=== PATIENT | male | born 1930 | race Caucasian/White ===

== ENCOUNTER → 2016-11-02 | Outpatient (CLI) | payer OTHER, BC ==
[~2016-11-02] MED LIST: HYDROCHLOROTH12.5 M1 PO; HYDROCODONE-AP1 EAC6 PO; OTHER MISCELL; SENNA-S TABLET1 EACH PO
== END ==
LOC: MRI 13:56
DX: K57.90 Diverticulosis of intestine, part unspecified, without perforation or abscess without bleeding (principal); R26.9 Unspecified abnormalities of gait and mobility; R42 Dizziness and giddiness

== ENCOUNTER → 2017-11-09 | Outpatient (CLI) | payer OTHER, BC ==
[~2017-11-09] MED LIST changes: +ASPIRIN325 PO; +PROSCAR 5MG TABL5 MG PO; +VITAMIN D32000 UNI1 PO; +XALATAN2.5 ML OPHTHALMIC
== END ==
LOC: RAD 09:24
DX: Z01.818 Encounter for other preprocedural examination (principal); K44.9 Diaphragmatic hernia without obstruction or gangrene; K40.90 Unilateral inguinal hernia, without obstruction or gangrene, not specified as recurrent

== ENCOUNTER 2017-12-07 05:24 | Inpatient (IN) | payer OTHER, BC ==
[~2017-12-07] VITALS: Ht 182.9 cm; Wt 86.2 kg
--- NOTE | ~2017-12-07 | S ---
[facility] [place] [address] SURGICAL PATH RPT PROCEDURE Name: TIBURCIO TUCKER Room #: 401-I [facility] IN M.R.#: [id number] Admission: 12/07/17 Date of : 30 Discharge: 12/07/17 Report #: [id number] Path Case #: [id number] PATHOLOGY REPORT COLLECTION DATE: 12/07/2017 RECEIVED DATE: 12/07/2017 SUBMITTING PHYS: Dr. Abdirahman Llamas OTHER PHYS: Dr. Andrés Logan SPECIMEN(S) RECEIVED: A.Right hernia sac * * * * * * * * * * * * FINAL DIAGNOSIS: Right hernia sac, repair: - Congested fibrovascular connective tissue lined by mesothelium with mild chronic inflammation and reactive changes, consistent with a hernia sac. (IUV:mgr; 12/10/2017) PATHOLOGIST: Marilyn Marroquin M.D. REPORT ELECTRONICALLY SIGNED BY: Marilyn Marroquin M.D. DATE/TIME: 12/10/2017 13:26 * * * * * * * * * * * * GROSS PATHOLOGY: Received in formalin labeled "Tiburcio Tucker, right hernia sac," is a piece of fibromembranous tissue measuring 6.7 x 3.9 x 0.8 cm. No nodules or lesions are identified. Quality Engineer tissue is submitted in cassette A1. (CAA; 12/07/2017) CLINICAL HISTORY: Right recurrent inguinal hernia INITIAL CPT CODE(S): A; 61850 Professional services performed by [facility] at [facility] [address] [place] [address] Technical services performed by [facility] at [address] [place] [address]. [facility] [address] [place] [address] SURGICAL PATH RPT PROCEDURE Name: TIBURCIO TUCKER Room #: 401-I [facility] IN M.R.#: [id number] Admission: 12/07/17 Date of : 30 Discharge: 12/07/17 Report #: [id number] Path Case #: [id number] [address] PHONE: [phone] DIRECTOR: Deon Lopez M.D. * * * END OF REPORT * * *
--- NOTE | ~2017-12-07 | O ---
[facility] [place] [address] OPERATIVE REPORT Name: GARRETTJENI Room #: 401-I [facility] IN [facility].#: [id number] Admission: 12/07/17 Attend Phys: Abdirahman Llamas MD, F Discharge: 12/07/17 Date of : 30 Report #: [id number] THIS REPORT FOR: //name// CC: Andrés Llamas DATE OF SERVICE: 12/07/2017 SURGEON: Abdirahman Llamas MD MEAT HANGER: Desi Connors NP PREOPERATIVE DIAGNOSES: 1. Recurrent right inguinal hernia. 2. History of stroke. 3. Osteoarthritis. 4. Hypertension. 5. Gastroesophageal reflux disease. POSTOPERATIVE DIAGNOSES: 1. Incarcerated indirect right inguinal hernia. 2. History of stroke. 3. Osteoarthritis. 4. Hypertension. 5. Gastroesophageal reflux disease. PROCEDURE: Open repair of recurrent right inguinal hernia with Surgimesh plug and onlay patch. ANESTHESIA: General endotracheal anesthesia and local anesthetic. ESTIMATED BLOOD LOSS: 10 mL. SPECIMEN: None. COMPLICATIONS: None appreciated. INDICATIONS FOR PROCEDURE: This is an 87-year-old male patient of Dr. Andrés Logan, who has undergone previous laparoscopic repair of bilateral inguinal hernias on 10/27/2015. Since that time, the patient developed bulging and pain in the right groin approximately 6 months ago. He denies a change in his bowel habits. On exam, he was found to have a significant right groin bulge. He presents now for open repair of his recurrent right inguinal hernia. DESCRIPTION OF PROCEDURE IN DETAIL: After the risks, benefits, and expectations of the operation were discussed in detail with the patient, which include, but [facility] [place] [address] OPERATIVE REPORT Name: TUCKERJENI Room #: 401-I [facility] IN [facility].#: [id number] Admission: 12/07/17 Attend Phys: Abdirahman Llamas MD, F Discharge: 12/07/17 Date of : 30 Report #: [id number] are not limited to risks of bleeding, infection, recurrence, postoperative pain, and postoperative expectations, informed consent was obtained. The patient was identified in preoperative holding area. He was given IV antibiotics as documented in the chart in line with SCIP metrics. The patient was then taken to the operating room and he was placed in the supine position. SCDs were placed on the patient's bilateral lower extremities and pneumatic compression was initiated. The patient was given IV sedation and he was intubated without incident. His abdomen, groins, and genitalia were then prepped and draped in the standard sterile fashion. Time-out was performed to identify the correct patient and procedure. The planned transverse right inguinal incision was drawn out and anesthetized with local anesthetic. A sharp #10 blade scalpel was then used to make the incision through the skin and subcutaneous tissue. Electrocautery was used to dissect through the subcutaneous tissue down to the herniated tissue. The tissue was circumferentially dissected free. The external oblique fascia was then identified. It was opened along the length of its fibers toward the external inguinal ring and slightly laterally. The spermatic cord was then encircled with a [place] drain. Dissection was carried out to identify the indirect inguinal hernia sac with care taken to avoid the critical structures of the spermatic cord. After fully dissecting the sac free, high ligation was performed. An Allis was placed at the apex of the hernia sac and the sac was twisted to expel any content from the internal portion of the sac. Hemostat was then placed on the hernia sac and the sac was excised. A 2-0 Vicryl suture was then placed to close the cut edge of the hernia sac. A Surgimesh plug was then placed within the indirect inguinal defect and secured into place with 4 simple interrupted 0 Prolene sutures, medially at the pubic tubercle, inferiorly to the shelving edge of the inguinal ligament, and laterally and superiorly to the transversus abdominis muscle with transversalis fascia. The Surgimesh patch was then tailored to fit the inguinal canal. It was secured to the pubic tubercle and using two separate running 0 Prolene sutures, the edge of the mesh was affixed to the shelving edge of the inguinal ligament on the inferior side and the transversalis fascia with transversus abdominis muscle on the superior/lateral aspects. The tails of the mesh were then approximated to each other with a simple interrupted 0 Prolene suture. The external oblique fascia was then closed with a running 2-0 Vicryl suture. Local anesthetic was infiltrated subfascially. Abner's fascia was closed with a running 3-0 Vicryl suture and a running 4-0 Monocryl subcuticular suture was used to close the skin. Dermabond was applied to the suture line. The patient tolerated the procedure well. He was awakened, extubated, and taken to recovery room in stable condition with no apparent intraoperative complications. <ELECTRONICALLY SIGNED> By: Abdirahman Llamas MD, FACS 12/07/17 1730 [id number] Abdirahman Llamas MD, FACS /nt
--- NOTE | ~2017-12-07 | EKG ---
[place] [address] [facility] [place] [address] ELECTROCARDIOGRAM REPORT Name: TUCKERJENI Room #: 150-10 ADM IN ..#: [id number] Admission: 12/07/17 Attend Phys: Abdirahman Llamas MD, F Discharge: Date of : 30 Report #: [id number] THIS REPORT FOR: //name// [facility] Test Date: 2017-12-07 Test Time: 06:28:58 Pat Name: JENI TUCKER Department: Room: 150 10 Gender: M Under Cutter: MARTHA : 1930 Requested By: Richi Terrell Order Number: [id number] MD: Rohith Nunes Measurements Intervals [place] Rate: 69 P: -13 VA: 203 QRS: -1 QRSD: 113 T: 75 QT: 426 QTc: 457 Interpretive Statements Sinus rhythm Incomplete left bundle branch block Low voltage, extremity leads Anterior Q waves, possibly due to ILBBB Baseline wander in lead(s) V1 Compared to ECG 10/06/2016 15:45:28 Left bundle-branch block now present Electronically Signed On 12-07-2017 7:55:12 TRAILER STEERER by Rohith Nunes [email or web address] <ELECTRONICALLY SIGNED> By: Rohith Nunes MD, [facility] 12/07/17 0755 [id number] 0628 Rohith Nunes MD, [facility] /EPI
[2017-12-07 07:00] VITALS: BP 163/97
[2017-12-07] MEDS ORDERED: SENNA-S TABLET1 EACH PO (10:18)
[2017-12-07] MEDS ORDERED: HYDROCODONE-AP1 EAC6 PO (10:18)
[2017-12-07 10:38] VITALS: BP 148/86
[2017-12-07 13:25] VITALS: BP 148/86
== END 2017-12-07 14:53 | disposition home or self-care (01) | DRG 352 ==
LOC: TBA 05:24 → 4N 10:36 → PRE 14:26 → ENTRNSPT 14:44 → EDTRNSPTSTS 14:47 → 4N 14:53
PROC: 0YU50JZ Supplement Right Inguinal Region with Synthetic Substitute, Open Approach (ICD-10-PCS; principal; 2017-12-07)
DX: K40.91 Unilateral inguinal hernia, without obstruction or gangrene, recurrent (principal); M19.90 Unspecified osteoarthritis, unspecified site; I10 Essential (primary) hypertension; K21.9 Gastro-esophageal reflux disease without esophagitis; Z86.73 Personal history of transient ischemic attack (TIA), and cerebral infarction without residual deficits
CPT/HCPCS: 10790; 50010; 50101; 50386; 50417; 50788; 54118; 56524; 56525; 56526; 62110; 62900; 70005

== ENCOUNTER 2020-04-13 10:32 | Inpatient (IN) | payer OTHER ==
[~2020-04-13] VITALS: Ht 182.9 cm; Wt 86.2 kg
--- NOTE | ~2020-04-13 | O ---
[facility] [place] [address] OPERATIVE REPORT Name: JENI TUCKER Room #: 455-P [facility] IN ..#: [id number] Admission: 04/13/20 Attend Phys: Valerie Hill Discharge: Date of : 30 Report #: [id number] THIS REPORT FOR: cc: Andrés Logan MD, Rene P. MD Kneidel, Matthew T. MD ~ CC: Valerie Logan DATE OF SERVICE: 04/14/2020 PREOPERATIVE DIAGNOSIS: Left femoral neck fracture, displaced. POSTOPERATIVE DIAGNOSIS: Left femoral neck fracture, displaced. PROCEDURE: Left hip hemiarthroplasty. SURGEON: Dr. Kenny Dias. DOOR TO DOOR SALES REPRESENTATIVE: Divya Rivera. ANESTHESIA: General. ESTIMATED BLOOD LOSS: Minimal. DRAINS: No drains. TOURNIQUET TIME: Zero. ESTIMATED BLOOD LOSS: 200 mL. DESCRIPTION OF PROCEDURE: The patient was brought to the operating room where he was placed under general anesthesia. Once under adequate general anesthesia, he was placed into a lateral decubitus position on the operative table. The patient's left hip was then prepped and draped in a sterile manner. A 16 cm incision overlying the tip of the greater trochanter was then made. This was dissected down through the soft tissue to the tensor fascia, which was then incised in line with the incision. Once this was done, the posterior aspect of the hip was exposed. Bursa was excised and the piriformis was identified. The piriformis along with the joint capsule was then elevated off of the joint and exposure was made of the joint. Any hematoma was evacuated. The femoral head was extracted utilizing a corkscrew type extractor and subsequently the neck was cut to length. A rectangular osteotome was then utilized to enter the femoral canal. Subsequently, the canal was reamed and broached to a size 7 stem. The femoral head was sized to a size 55. Trial components were placed and did appear to be stable; therefore, a subsequent irrigation of the joint and the [facility] [address] [place] [address] OPERATIVE REPORT Name: JENI TUCKER Room #: 455-P [facility] IN M.R.#: [id number] Admission: 04/13/20 Attend Phys: Valerie Hill Discharge: Date of : 30 Report #: [id number] femoral canal was performed along with preparation of the canal for cementing. The cement stopper was placed and the cement was then placed with a construction ironworker and the size 7 stem was then placed down the canal. The +0 neck and size 55 head were then placed. Excellent reduction was achieved. Once reduced, the wound was irrigated copiously and the capsular layer was closed with #2 FiberWire. #5 FiberWire was used in the piriformis to repair back to its place in the piriformis fossa. The wound was irrigated once again copiously and closed with #1 Vicryl in the tensor fascia, 2-0 Vicryl in subcutaneous tissues and godfrey were used for the skin. Wounds were dressed with Xeroform, 4 x 4s, and sterile soft compressive dressing was placed. There were no complications from the procedure. The patient tolerated the procedure well and went to the recovery room without incident. By: [id number] Kenny Dias MD /nt
[2020-04-13 10:33] VITALS: BP 150/80
[2020-04-13] MEDS ORDERED: ASA81BEC PO (10:46)
[2020-04-13 11:49] LABS: ABSOLUTE NEUTROPHILS 3.4 thou/uL (1.4-8.2); BASOPHILS 0.9 % (0.0-2.0); EOSINOPHILS 6.1 % (0.0-3.0); HEMATOCRIT 45.3 % (42.0-52.0); HEMOGLOBIN 15.2 gm/dL (14.0-18.0); LYMPHOCYTES 24.1 % (24.0-44.0); MCH 31.2 pg (26.0-34.0); MCHC 33.6 g/dL (28.0-37.0); MCV 92.9 fL (80.0-100.0); MONOCYTES 7.2 % (1.0-8.0); PLATELET COUNT 164 thou/uL (150-400); POLYS 61.7 % (36.0-66.0); RBC 4.88 mil/uL (4.50-6.00); RDW 14.4 % (10.5-14.5); WBC 5.4 thou/uL (4.0-11.0)
[2020-04-13 11:52] LABS: CALCIUM 8.1 mg/dL (8.5-10.1); CREATININE 1.3 mg/dL (0.7-1.3); POTASSIUM 3.7 mmol/L (3.5-5.1)
[2020-04-13 12:14] VITALS: BP 130/87
[2020-04-13 12:54] LABS: TSH 3.641 uIU/mL (0.358-3.740)
[2020-04-13 14:49] VITALS: BP 154/73
[2020-04-13 16:30] VITALS: BP 158/97
[2020-04-13 20:01] VITALS: BP 135/75
[2020-04-14] VITALS (11 sets, daily range): BP systolic 130–154; BP diastolic 81–91
--- NOTE | 2020-04-14 07:21 | EKG ---
[facility] [place] [address] ELECTROCARDIOGRAM REPORT Name: JENI TUCKER Nehemiah Room #: 455- ADM IN M.R.#: [id number] Admission: 04/13/20 Attend Phys: Valerie Hill Discharge: Date of : 30 Report #: [id number] THIS REPORT FOR: cc: Andrés Logan MD, Rene P. MD Lundgren,Rohith Samuels MD [facility] ~ THIS REPORT FOR: //name// [facility] ED Test Date: 2020-04-13 Test Time: 10:42:13 Pat Name: JENI TUCKER Department: Room: [facility] Gender: M Receiving Associate: CHRIS : 1930 Requested By: Sixto Black Order Number: [id number] MD: Rohith Nunes Measurements Intervals [place] Rate: 69 P: 22 DC: 210 QRS: 158 QRSD: 150 T: -23 QT: 427 QTc: 458 Interpretive Statements Possible limb lead reversal Sinus rhythm Atrial premature complexes Left bundle branch block Compared to ECG 12/07/2017 06:28:58 Left bundle branch block is now present Electronically Signed On 04-14-2020 7:20:45 CDT by Rohith Nunes [email or web address] <ELECTRONICALLY SIGNED> By: Rohith Nunes MD, FAC 04/14/20 [phone] Rohith Nunes MD, FAC /EPI
[2020-04-15 05:42] VITALS: BP 112/48
[2020-04-15 07:28] VITALS: BP 119/64
[2020-04-15 19:35] VITALS: BP 94/48
[2020-04-15 23:35] VITALS: BP 126/49
[2020-04-16 05:42] LABS: HEMATOCRIT 31.7 % (42.0-52.0); MCH 31.3 pg (26.0-34.0); MCHC 33.6 g/dL (28.0-37.0); MCV 93.2 fL (80.0-100.0); RBC 3.4 mil/uL (4.50-6.00); RDW 14.1 % (10.5-14.5)
[2020-04-16 05:47] VITALS: BP 127/62
[2020-04-16 06:13] LABS: HEMOGLOBIN 10.7 gm/dL (14.0-18.0)
[2020-04-16 07:50] VITALS: BP 125/62
[2020-04-16] MEDS ORDERED: HYDROCODON-ACE1 EAC7 PO (09:13)
[2020-04-16] MEDS ORDERED: ACETAMINOPHEN325 M1 PO (09:13)
[2020-04-16] MEDS ORDERED: MIRALAX17 GM PO (09:13)
[2020-04-16] MEDS ORDERED: ENOXAPARIN40 MG/0.1 SUBQ (09:16)
== END 2020-04-16 15:33 | DRG 470 ==
LOC: ER 10:32 → 4W 12:11 → ER 14:56 → 4W 04-16 15:33
PROVIDERS: Emergency Medicine; ADMIT Hospitalist; ATTEND Hospitalist
PROC: 0SRS0J9 Replacement of Left Hip Joint, Femoral Surface with Synthetic Substitute, Cemented, Open Approach (ICD-10-PCS; principal; 2020-04-14)
DX: S72.002A Fracture of unspecified part of neck of left femur, initial encounter for closed fracture (principal); R63.4 Abnormal weight loss; G47.00 Insomnia, unspecified; N40.0 Benign prostatic hyperplasia without lower urinary tract symptoms; K59.00 Constipation, unspecified; E53.8 Deficiency of other specified B group vitamins; Z20.828 Contact with and (suspected) exposure to other viral communicable diseases; N18.3 Chronic kidney disease, stage 3 (moderate); Z98.42 Cataract extraction status, left eye; Z98.41 Cataract extraction status, right eye; Z86.73 Personal history of transient ischemic attack (TIA), and cerebral infarction without residual deficits; W18.39XA Other fall on same level, initial encounter; Y93.01 Activity, walking, marching and hiking; Y92.89 Other specified places as the place of occurrence of the external cause; Y99.8 Other external cause status; Z79.82 Long term (current) use of aspirin; Z79.899 Other long term (current) drug therapy; Z47.89 Encounter for other orthopedic aftercare; Z68.25 Body mass index [BMI] 25.0-25.9, adult
CPT/HCPCS: 10040; 10045; 50010; 50101; 50149; 50382; 50414; 51057; 51130; 51225; 51226; 51412; 56525; 56530; 56531; 57103; 57117; 62110; 62900; 70005